=== PATIENT | female | born 1970 | race Caucasian/White ===

== ENCOUNTER 2021-07-01 07:28 | Emergency (ER) | payer OTHER ==
[~2021-07-01 07:28] MED LIST: IMITREX50 MG PO; ONDANSETRON ODT4 MG PO; PEPCID20 MG PO; PREDNISONE20 MG PO; ZOFRAN4 MG PO
== END 2021-07-01 10:40 | disposition home or self-care (01) ==
LOC: ER1 07:28
DX: G43.909 Migraine, unspecified, not intractable, without status migrainosus (principal); I10 Essential (primary) hypertension; Z79.899 Other long term (current) drug therapy
CPT/HCPCS: 96372; 99283; J3030